=== PATIENT | male | born 1960 | race African-American/Black ===

== ENCOUNTER 2017-09-26 19:41 | Inpatient (IN) | payer MEDICARE, MEDICAID ==
[2017-09-26 23:08] VITALS: BP 126/76
[2017-09-27] MEDS ORDERED: Magnesium Hydroxide (MOM) 30 mL UDC PO PRN (00:21)
[2017-09-27] MEDS: Levothyroxine 0.1 Mg Tab PO SCH (06:39)
[2017-09-27] MEDS: INSULIN ASPART SLIDING SCALE 100 UNITS/ML UNIT SUBQ SCH ×4 (06:44→20:47)
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
--- NOTE | 2017-09-27 08:44 | Diagnostic Imaging Report ---
Portable chest x-ray HISTORY: Cough The heart size is difficult to assess with portable technique in a poor inspiration. No definite acute focal bony processes are seen. Hilar or mediastinal abnormalities. IMPRESSION: 1. No definite acute abnormalities
[2017-09-27 08:53] LABS: MEAN CORPUSCULAR HGB CONC 33.6 pg (28.0-36.0)
[2017-09-27 08:56] LABS: HEMATOCRIT 34.8 % (41.0-60); HEMOGLOBIN 11.7 gm/dL (12-16); MEAN CELL VOLUME 90.7 fl (80-99); MEAN CORPUSCULAR HEMOGLOBIN 30.5 pg (26.0-30.0); MEAN PLATELET VOLUME 7.8 fl; PLATELET COUNT 204 Th/cmm (150-400); RED BLOOD COUNT 3.83 Mil/cmm (4.30-5.70); WHITE BLOOD COUNT 9.3 Th/cmm (4.8-10.8)
[2017-09-27 08:59] LABS: MANUAL DIFF REQUIRED? YES
[2017-09-27] MEDS ORDERED: BULGARICUS PO SCH (09:00)
[2017-09-27] MEDS ORDERED: ACIDOPHILUS PO SCH (09:00)
[2017-09-27 09:15] LABS: EOSINOPHIL 1 % (0-5); LYMPHOCYTE 24 % (20-50); MONOCYTE 8 % (2-10); NEUTROPHILS 67 % (40-80); TOTAL CELLS COUNTED 100
[2017-09-27 09:20] LABS: ALB/GLOB RATIO 1.8 (1.0-1.8); ALKALINE PHOSPHATASE 54 U/L (34-104); ANION GAP 8.2 (7.0-16.0); BILIRUBIN,TOTAL 0.3 mg/dL (0.3-1.0); BUN - UREA NITROGEN 19 mg/dL (7-25); CALCIUM SERUM 8.8 mg/dL (8.6-10.3); CARBON DIOXIDE 32.9 mEq/L (21.0-31.0); CHLORIDE 99 mEq/L (98-107); CREATININE - SERUM 1.1 mg/dL (0.7-1.3); GFR AFRICAN-AMERICAN > 60.0 ml/min (>90); GFR NON AFRICAN-AMERICAN > 60.0 ml/min; GLUCOSE 121 mg/dL (70-105); MAGNESIUM 2.3 mg/dL (1.9-2.7); POTASSIUM SERUM 3.1 mEq/L (3.5-5.1); SGOT 41 U/L (13-39); SGPT/ALT 52 U/L (7-52); SODIUM SERUM 137 mEq/L (136-145); TOTAL PROTEIN,SERUM 6.2 gm/dL (6.0-8.3)
[2017-09-27] MEDS: Ferrous Sulfate 300 MG/5 ML UDC PO SCH (09:33)
[2017-09-27] MEDS: Lactobacillus Rhamnosus GG 15 Billion CFU CAP.SPRINK PO SCH (09:34)
[2017-09-27] MEDS: Atorvastatin Calcium 10 MG TAB PO SCH (09:35)
[2017-09-27] MEDS: Multivitamin w/ Minerals Tab PO SCH (09:35)
[2017-09-27 15:44] LABS: A1C % 7.1 % (4.0-6.0)
[2017-09-27] MEDS: Ipratropium Neb 0.5 mg/2.5 mL UD HHN PRN (20:15)
--- NOTE | 2017-09-27 22:07 | Psychosocial Evaluation ---
DATE OF SERVICE: JUSTIFICATION FOR HOSPITALIZATION: Coming in on a hold from [place], increased agitation, and aggressive behaviors. HISTORY OF PRESENT ILLNESS: A 56-year-old male with history of aggressive behaviors, agitation, and disorganized thoughts. Also, schizophrenia, homeless, not able to care for himself, not saying anything, selectively mute on exam, brought in on a gurney, disheveled, wearing a plastic helmet, anxious, slurred speech. On [id number], the patient is selectively mute, not saying anything to me whatsoever, staring blankly, but awake and alert. PAST PSYCHIATRIC HISTORY: Unclear. It seems he has history of schizophrenia per documentation. FAMILY HISTORY: Unknown. SOCIAL HISTORY: Homeless. Unknown drugs, alcohol, or tobacco. MEDICATIONS: Reviewed. MEDICAL HISTORY: Please see full H and P. MENTAL STATUS EXAMINATION: Stated age, unkempt. Some eye contact, not interactive at all on exam, unclear SI or HI. Seems to be responding to internal stimuli, poor insight and judgment. PROVISIONAL DIAGNOSIS: Schizophrenia. Under medical, please see full H and P. ESTIMATED LENGTH OF STAY: 5-6 days. ASSESSMENT: The patient requiring inpatient hospitalization, psychotic, gravely disabled, unable to care for himself, seemingly depressed. PLAN: We will restart medications including Geodon, low dose Seroquel. TREATMENT PLAN: Includes group as well as milieu therapy. CONDITIONS FOR DISCHARGE: Improved mood, improved affect, cessation of any SI, better control of any psychotic symptoms. [facility]# [id number]
[2017-09-28] MEDS: Levothyroxine 0.1 Mg Tab PO SCH (06:40)
[2017-09-28] MEDS: INSULIN ASPART SLIDING SCALE 100 UNITS/ML UNIT SUBQ SCH ×4 (06:41→20:49)
[2017-09-28] MEDS ORDERED: Potassium Chloride 20 mEq ER Tab PO ONE (08:02)
[2017-09-28] MEDS: Ipratropium Neb 0.5 mg/2.5 mL UD HHN PRN ×4 (08:04→20:24)
--- NOTE | 2017-09-28 08:04 | General Progress Note ---
Subjective - Review of Systems Service Date: 09/28/17 Subjective: Pt seen and eval. NAD. Has labile mood. No n,v,d or cp. No falls or sz. No cough. Objective - Results Result Diagrams: 09/27/17 08:47 09/27/17 08:47 Recent Labs: Laboratory Last Values WBC 9.3 Th/cmm (4.8-10.8) 09/27/17 08:47 RBC 3.83 Mil/cmm (4.30-5.70) L 09/27/17 08:47 Hgb 11.7 gm/dL (12-16) L 09/27/17 08:47 Hct 34.8 % (41.0-60) L 09/27/17 08:47 MCV 90.7 fl (80-99) 09/27/17 08:47 MCH 30.5 pg (26.0-30.0) H 09/27/17 08:47 MCHC Differential 33.6 pg (28.0-36.0) 09/27/17 08:47 RDW 15.0 % (11.5-20.0) 09/27/17 08:47 Plt Count 204 Th/cmm (150-400) 09/27/17 08:47 MPV 7.8 fl 09/27/17 08:47 Neutrophils (Manual) 67 % (40-80) 09/27/17 08:47 Lymphocytes 24 % (20-50) 09/27/17 08:47 Monocytes 8 % (2-10) 09/27/17 08:47 Eosinophils 1 % (0-5) 09/27/17 08:47 Sodium 137 mEq/L (136-145) 09/27/17 08:47 Potassium 3.1 mEq/L (3.5-5.1) L 09/27/17 08:47 Chloride 99 mEq/L (98-107) 09/27/17 08:47 Carbon Dioxide 32.9 mEq/L (21.0-31.0) H 09/27/17 08:47 Anion Gap 8.2 (7.0-16.0) 09/27/17 08:47 BUN 19 mg/dL (7-25) 09/27/17 08:47 Creatinine 1.1 mg/dL (0.7-1.3) 09/27/17 08:47 Est GFR ( Amer) > 60.0 ml/min (>90) 09/27/17 08:47 Est GFR (Non-Af Amer) > 60.0 ml/min 09/27/17 08:47 BUN/Creatinine Ratio 17.3 09/27/17 08:47 Glucose 121 mg/dL (70-105) H 09/27/17 08:47 POC Glucose 101 MG/DL (70 - 105) 09/28/17 06:39 Hemoglobin A1c % 7.1 % (4.0-6.0) H 09/27/17 08:47 Calcium 8.8 mg/dL (8.6-10.3) 09/27/17 08:47 Magnesium 2.3 mg/dL (1.9-2.7) 09/27/17 08:47 Total Bilirubin 0.3 mg/dL (0.3-1.0) 09/27/17 08:47 AST 41 U/L (13-39) H 09/27/17 08:47 ALT 52 U/L (7-52) 09/27/17 08:47 Alkaline Phosphatase 54 U/L (34-104) 09/27/17 08:47 Total Protein 6.2 gm/dL (6.0-8.3) 09/27/17 08:47 Albumin 4.0 gm/dL (4.2-5.5) L 09/27/17 08:47 Globulin 2.2 gm/dL 09/27/17 08:47 Albumin/Globulin Ratio 1.8 (1.0-1.8) 09/27/17 08:47 - Physical Exam Vitals and I&O: Vital Signs Temp 97.9 F 09/28/17 06:40 Pulse 77 09/28/17 06:40 Resp 20 09/28/17 06:40 BP 142/54 09/28/17 06:40 Pulse Ox 99 09/28/17 06:40 Intake & Output 09/27/17 09/28/17 09/28/17 18:59 06:59 18:59 Intake Total 1600 120 Balance 1600 120 Intake: Oral 1600 120 Other: # Voids 3 3 # Bowel Movements 1 Active Medications: Current Medications Acetaminophen (Tylenol) 650 mg PO Q6H PRN PRN Reason: Headache Stop: 11/26/17 00:35 Acetylcysteine (Mucomyst 20%) 2 ml HHN [id number] [facility] Stop: 11/26/17 07:59 Last Admin: 09/27/17 20:16 Dose: 2 ml Atorvastatin Calcium (Lipitor) 10 mg PO DAILY ZAFAR PRN Reason: Protocol Stop: 11/26/17 08:59 Last Admin: 09/27/17 09:35 Dose: 10 mg Docusate Sodium (Colace) 100 mg PO BID ZAFAR Stop: 11/26/17 08:59 Last Admin: 09/27/17 16:08 Dose: 100 mg Ferrous Sulfate (Iron) 300 mg PO DAILY ZAFAR Stop: 11/26/17 08:59 Last Admin: 09/27/17 09:33 Dose: 300 mg Insulin Aspart (Novolog Insulin Sliding Scale) 0 units SUBQ ACHS ZAFAR PRN Reason: Protocol Stop: 11/26/17 07:29 Last Admin: 09/28/17 06:41 Dose: Not Given Ipratropium [place] (Atrovent Neb 0.5mg/2.5ml) 0.6 mg HHN Q4H PRN PRN Reason: sob Stop: 11/26/17 05:06 Last Admin: 09/27/17 20:15 Dose: 0.6 mg Lactobacillus Rhamnosus (Culturelle 15b) 1 each PO DAILY [facility] Stop: 11/26/17 08:59 Last Admin: 09/27/17 09:34 Dose: 1 each Levothyroxine Sodium (Synthroid) 0.2 mg PO QDAC [facility] Stop: 11/26/17 07:29 Last Admin: 09/28/17 06:40 Dose: 0.2 mg Lisinopril (Zestril) 20 mg PO DAILY [facility] Stop: 11/26/17 08:59 Last Admin: 09/27/17 09:34 Dose: 20 mg Lorazepam (Ativan) 1 mg PO Q4H PRN; Protocol PRN Reason: Anxiety and agitation Stop: 11/26/17 05:06 Last Admin: 09/27/17 23:22 Dose: 1 mg Magnesium Hydroxide (Milk Of Magnesia) 30 ml PO HS PRN PRN Reason: Constipation Stop: 11/26/17 00:20 Meclizine HCl (Antivert) 12.5 mg PO Q12H PRN PRN Reason: Dizziness Stop: 11/26/17 05:06 Metoprolol Tartrate (Lopressor) 50 mg PO BID [facility] Stop: 11/26/17 08:59 Last Admin: 09/27/17 16:09 Dose: Not Given Nitroglycerin (Nitrostat) 0.4 mg SL Q4H PRN PRN Reason: Chest Pain Stop: 11/26/17 05:06 Ondansetron HCl (Zofran Odt) 4 mg PO Q6H PRN PRN Reason: Nausea / Vomiting Stop: 11/26/17 00:20 Quetiapine Fumarate (Seroquel) 100 mg PO TID [facility] PRN Reason: Protocol Stop: 11/27/17 08:59 Simethicone (Mylicon) 80 mg PO TID PRN PRN Reason: Indigestion Stop: 11/26/17 05:06 Ziprasidone (Geodon) 20 mg PO BID [facility] PRN Reason: Protocol Stop: 11/26/17 08:59 Last Admin: 09/27/17 16:10 Dose: 20 mg Zolpidem Tartrate (Ambien) 5 mg PO PRN PRN Reason: Insomnia Stop: 11/26/17 00:20 Last Admin: 09/27/17 20:46 Dose: 5 mg General: No acute distress HEENT: Atraumatic, PERRLA Neck: Supple, JVD, Thyromegaly Cardiovascular: Regular rate, no Systolic murmurs Lungs: Clear to auscultation, Normal air movement Abdomen: Bowel sounds, Soft Assessment/Plan - Assessment Assessment: DM-OOC Hypokalemia - Plan Plan: Add metformin. Continue fsbs and riss. Give Kcl 40 meq po times one. FU on chem 7 and Mag level.
[2017-09-28] MEDS: Lactobacillus Rhamnosus GG 15 Billion CFU CAP.SPRINK PO SCH (09:15)
[2017-09-28] MEDS: Ferrous Sulfate 300 MG/5 ML UDC PO SCH (09:15)
[2017-09-28] MEDS: Multivitamin w/ Minerals Tab PO SCH (09:16)
[2017-09-28] MEDS: Atorvastatin Calcium 10 MG TAB PO SCH (09:17)
--- NOTE | 2017-09-28 22:40 | Progress Notes ---
DATE: 09/28/2017 SUBJECTIVE: The patient remains confused, history of dementia, states "all I know I'm here". He does not know the year, the month, the day of the week. He has no idea why he is here. The patient with some rambling episodes, disorientation, so requiring prompting. Sleeping with kettle firer awakenings. PLAN: We will continue to monitor. Given his ongoing symptoms, he is not safe for discharge. He is currently tolerating current medication regimen which include Seroquel 400 mg twice daily. JOB# [id number]
[2017-09-29] MEDS ORDERED: Ipratropium Neb 0.5 mg/2.5 mL UD HHN ONE (06:34)
[2017-09-29] MEDS: Levothyroxine 0.1 Mg Tab PO SCH (06:45)
[2017-09-29] MEDS: INSULIN ASPART SLIDING SCALE 100 UNITS/ML UNIT SUBQ SCH ×4 (06:46→21:01)
[2017-09-29 08:42] LABS: ANION GAP 5.4 (7.0-16.0); BUN - UREA NITROGEN 16 mg/dL (7-25); CALCIUM SERUM 8.9 mg/dL (8.6-10.3); CARBON DIOXIDE 36.4 mEq/L (21.0-31.0); CHLORIDE 102 mEq/L (98-107); CREATININE - SERUM 1.1 mg/dL (0.7-1.3); GFR AFRICAN-AMERICAN > 60.0 ml/min (>90); GFR NON AFRICAN-AMERICAN > 60.0 ml/min; GLUCOSE 112 mg/dL (70-105); POTASSIUM SERUM 3.8 mEq/L (3.5-5.1); SODIUM SERUM 140 mEq/L (136-145)
[2017-09-29] MEDS: Lactobacillus Rhamnosus GG 15 Billion CFU CAP.SPRINK PO SCH (08:57)
[2017-09-29] MEDS: Atorvastatin Calcium 10 MG TAB PO SCH (08:57)
[2017-09-29] MEDS: Multivitamin w/ Minerals Tab PO SCH (08:58)
[2017-09-29] MEDS: Ferrous Sulfate 300 MG/5 ML UDC PO SCH (08:59)
--- NOTE | 2017-09-29 09:34 | Progress Notes ---
DATE: 09/29/2017 SUBJECTIVE: The patient remains confused. States he does not know why he is here, "only knows I am here," not sure about the year, the month, rambling nonsensically, not a very good historian, still requiring prompting, unable to give me any indication that he will be able to attend to his basic needs if discharged, eating on his own volition, sleeping with spring bender awakenings. He is pretty disheveled. ASSESSMENT: The patient remains symptomatic, not safe for discharge, still disoriented, impulsive, and unpredictable. PLAN: We will continue to monitor. Continue medications at current dose. No side effects noted. JOB# [id number]
[2017-09-29] MEDS ORDERED: Haloperidol Lactate 5 mg/mL 1mL Vial ONE (10:06)
[2017-09-29] MEDS ORDERED: Haloperidol Lactate 5 mg/mL 1mL Vial IM ONE (10:15)
[2017-09-29] MEDS: Ipratropium Neb 0.5 mg/2.5 mL UD HHN PRN ×3 (11:54→19:36)
[2017-09-30] MEDS: Levothyroxine 0.1 Mg Tab PO SCH (06:38)
[2017-09-30] MEDS: INSULIN ASPART SLIDING SCALE 100 UNITS/ML UNIT SUBQ SCH ×4 (06:39→20:30)
[2017-09-30] MEDS: Ipratropium Neb 0.5 mg/2.5 mL UD HHN PRN ×3 (07:26→15:05)
[2017-09-30] MEDS: Ferrous Sulfate 300 MG/5 ML UDC PO SCH (09:16)
[2017-09-30] MEDS: Lactobacillus Rhamnosus GG 15 Billion CFU CAP.SPRINK PO SCH (09:17)
[2017-09-30] MEDS: Atorvastatin Calcium 10 MG TAB PO SCH (09:18)
[2017-09-30] MEDS: Multivitamin w/ Minerals Tab PO SCH (09:18)
--- NOTE | 2017-09-30 15:44 | Progress Notes ---
DATE: 09/30/2017 SUBJECTIVE: The patient remains confused, disoriented and nonsensical. I cannot understand what he is saying. He does not know why he is here. He is not quite sure about the year, the month. He does not have any idea where he is going to go back. He is giving me names or places that I am not sure exist or not. He is taking his medications, remains impulsive, unpredictable, sleeping fairly well, eating with prompting, he remains disheveled. ASSESSMENT: The patient remains symptomatic, still disoriented, poor impulse control, not a good historian. PLAN: We will continue to monitor given ongoing symptoms. There are overt safety concerns. We will monitor and follow up. [facility]# [id number]
[2017-10-01] MEDS: Levothyroxine 0.1 Mg Tab PO SCH (06:31)
[2017-10-01] MEDS: INSULIN ASPART SLIDING SCALE 100 UNITS/ML UNIT SUBQ SCH ×4 (06:47→20:34)
[2017-10-01] MEDS: Atorvastatin Calcium 10 MG TAB PO SCH (09:06)
[2017-10-01] MEDS: Ferrous Sulfate 300 MG/5 ML UDC PO SCH (09:06)
[2017-10-01] MEDS: Multivitamin w/ Minerals Tab PO SCH (09:06)
[2017-10-01] MEDS: Lactobacillus Rhamnosus GG 15 Billion CFU CAP.SPRINK PO SCH (09:08)
[2017-10-01] MEDS: Ipratropium Neb 0.5 mg/2.5 mL UD HHN PRN ×2 (11:42→16:16)
--- NOTE | 2017-10-01 21:10 | Progress Notes ---
DATE: 10/01/2017 SUBJECTIVE: The patient was seen today, 10/01/2017. The patient remains somewhat disoriented. He is calmer today, getting breathing treatments, more amenable to treatment. He is pretty disoriented, not really quite sure where he is or why he is here, the year, the month. He remains pretty impulsive and unpredictable. There are overt concerns about his ability to attend and care for his basic needs. He was initially admitted to the hospital due to being homeless and agitated and disorganized and bizarre appearing and unable to verbalize a plan for self-care. ASSESSMENT: The patient remains symptomatic, gravely disabled. There are overt and continued safety concerns. Medications will be adjusted appropriately. We will monitor and follow up. [facility]# [id number]
[2017-10-02] MEDS: Levothyroxine 0.1 Mg Tab PO SCH (06:38)
[2017-10-02] MEDS: INSULIN ASPART SLIDING SCALE 100 UNITS/ML UNIT SUBQ SCH ×4 (06:38→20:57)
[2017-10-02] MEDS: Ipratropium Neb 0.5 mg/2.5 mL UD HHN PRN ×2 (08:21→20:41)
[2017-10-02] MEDS: Ferrous Sulfate 300 MG/5 ML UDC PO SCH (09:16)
[2017-10-02] MEDS: Atorvastatin Calcium 10 MG TAB PO SCH (09:16)
[2017-10-02] MEDS: Lactobacillus Rhamnosus GG 15 Billion CFU CAP.SPRINK PO SCH (09:16)
[2017-10-02] MEDS: Multivitamin w/ Minerals Tab PO SCH (09:17)
--- NOTE | 2017-10-02 22:12 | Progress Notes ---
DATE: 10/02/2017 SUBJECTIVE: The patient coming in from [place] agitated, aggressive, disorganized, disheveled, bizarre. The patient remains odd, disoriented, does not know where he is or what is going on, mostly in his bed, fairly reclusive, fair medication compliance. He still seems to be somewhat psychotic, responding to internal stimuli. Currently on Seroquel 100 mg 3 times a day, seems calmer, more cooperative, more redirectable, but ongoing psychotic symptoms and disorganized thoughts. MEDICATIONS: Reviewed. ASSESSMENT: The patient remains symptomatic, disheveled, reclusive, concerns for his ability to care for his basic needs given his ongoing psychotic symptoms. PLAN: We will continue to monitor, increase Seroquel today. JOB# [id number]
[2017-10-03] MEDS: Levothyroxine 0.1 Mg Tab PO SCH (06:37)
[2017-10-03] MEDS: INSULIN ASPART SLIDING SCALE 100 UNITS/ML UNIT SUBQ SCH ×4 (06:44→21:00)
[2017-10-03] MEDS: Multivitamin w/ Minerals Tab PO SCH (09:02)
[2017-10-03] MEDS: Atorvastatin Calcium 10 MG TAB PO SCH (09:02)
[2017-10-03] MEDS: Lactobacillus Rhamnosus GG 15 Billion CFU CAP.SPRINK PO SCH (09:02)
[2017-10-03] MEDS: Ferrous Sulfate 300 MG/5 ML UDC PO SCH (09:02)
[2017-10-03] MEDS: Ipratropium Neb 0.5 mg/2.5 mL UD HHN PRN (20:20)
[2017-10-04] MEDS: Levothyroxine 0.1 Mg Tab PO SCH (06:30)
[2017-10-04] MEDS: INSULIN ASPART SLIDING SCALE 100 UNITS/ML UNIT SUBQ SCH ×4 (06:31→20:19)
[2017-10-04] MEDS: Ipratropium Neb 0.5 mg/2.5 mL UD HHN PRN ×2 (06:45→11:37)
[2017-10-04] MEDS: Ferrous Sulfate 300 MG/5 ML UDC PO SCH (08:15)
[2017-10-04] MEDS: Atorvastatin Calcium 10 MG TAB PO SCH (08:16)
[2017-10-04] MEDS: Lactobacillus Rhamnosus GG 15 Billion CFU CAP.SPRINK PO SCH (08:17)
[2017-10-04] MEDS: Multivitamin w/ Minerals Tab PO SCH (08:18)
--- NOTE | 2017-10-04 13:52 | Progress Notes ---
DATE: 10/03/2017 HISTORY OF PRESENT ILLNESS: The patient is coming in from [place], remains agitated, somewhat aggressive, odd, fairly reclusive, staff noting he has been masturbating in his room, not following unit rules and directions very well. He is somewhat more calm, more cooperative. He states he has a place to go, but nothing has been confirmed and there are overt concerns about his ability to take care of his basic needs. MEDICATIONS: Reviewed including dosages and frequencies. ASSESSMENT: The patient remains symptomatic, not safe for discharge, still remains impulsive, still seems to be mumbling to self, responding to internal stimuli. PLAN: We will continue to monitor, we will try to confirm placements, increase Seroquel today. JOB# [id number]
--- NOTE | 2017-10-05 01:39 | Progress Notes ---
DATE: 10/04/2017 SUBJECTIVE: The patient was seen and evaluated. psychiatric followup, now covering for Dr. Lubin IDENTIFYING DATA: A 56-year-old male with history of aggressive behavior and disorganized thought process with diagnosis of schizophrenia, transient, was brought in here after the patient presented very psychotic, disorganized and staring blankly. Today on [id number] evaluation, he observed to be responding, internally preoccupied, minimally interactive and is very disengaged in the interview, mostly avoiding all of the questions although finding extremely preoccupied. MENTAL STATUS EXAMINATION: Disorganized, internally preoccupied. Flat affect, poor insight, judgment and impulse control. ASSESSMENT AND PLAN: The patient is a patient with severe schizophrenia who is using adjustments of any increase of Seroquel, has been alleviating some of the patient's psychotic symptoms. We will continue with primary psychiatrist's treatment plan and goals, which includes Seroquel at 100 mg p.o. b.i.d. and 250 at nighttime and Geodon at 20 mg p.o. b.i.d. We will continue with the current medication regimen and slowly consider tapering him off the Geodon to reduce the risk of any cardiac side effects of medications as he is observed to be tolerating slightly better dosage of the increase of quetiapine. JOB# [id number]
[2017-10-05] MEDS: Levothyroxine 0.1 Mg Tab PO SCH (06:48)
[2017-10-05] MEDS: INSULIN ASPART SLIDING SCALE 100 UNITS/ML UNIT SUBQ SCH ×4 (06:49→20:15)
[2017-10-05] MEDS: Ferrous Sulfate 300 MG/5 ML UDC PO SCH (08:21)
[2017-10-05] MEDS: Lactobacillus Rhamnosus GG 15 Billion CFU CAP.SPRINK PO SCH (08:21)
[2017-10-05] MEDS: Atorvastatin Calcium 10 MG TAB PO SCH (08:23)
[2017-10-05] MEDS: Multivitamin w/ Minerals Tab PO SCH (08:23)
--- NOTE | 2017-10-05 23:15 | Progress Notes ---
DATE: 10/05/2017 The patient was seen and evaluated. The patient's chart reviewed. This is Dr. Bennett covering for Dr. Lubin. SUBJECTIVE: Today on [id number] evaluation, the patient is disengaged, observed to be responding heavily to the voices. Today, he denies any side effects of medication. MENTAL STATUS EXAMINATION: Disorganized, internally preoccupied. Poor insight, judgment, and impulse control with flat effect. ASSESSMENT AND PLAN: The patient is a 56-year-old male with paranoid schizophrenia. We will continue with supervision and monitoring. Currently, the patient is on Seroquel 450 mg a day. Due to the patient's active psychotic symptoms, we will continue titrating the Seroquel to target the patient's psychotic symptoms and discontinue the Geodon interaction since Geodon at this point is extremely ineffective. JOB# [id number]
--- NOTE | 2017-10-06 00:15 | Progress Notes ---
DATE: SUBJECTIVE: The patient was seen and evaluated and appears to not be in any acute distress. The patient complains of generalized muscle weakness, which has increased over the last 2 days. Denies fevers, chills, chest pain, shortness of breath, abdominal pain, nausea, vomiting, or recent falls. PHYSICAL EXAMINATION: VITAL SIGNS: Temperature 98.6 degrees, blood pressure 112/60, heart rate 86, and respirations 16. GENERAL: NAD. HEENT: PERRLA. EOMI. NECK: Supple, Trachea midline. CARDIOVASCULAR: Regular rate and rhythm. RESPIRATORY: Decreased breath sounds bilaterally. No wheezes, rales, or rhonchi. ABDOMEN: Soft, nontender, nondistended. Bowel sounds x4. PSYCHIATRIC: Poor impulse control. EXTREMITIES: No edema. MUSCULOSKELETAL: Unsteady gait. Muscle strength testing in bilateral upper and lower extremity is 4/5. LABORATORY DATA: No new labs. ASSESSMENT: Generalized weakness, diabetes mellitus, dyslipidemia, hypothyroidism, hypertension, psychosis, seizure disorder, left calcaneus avulsion fracture, metabolic encephalopathy, status post acute respiratory failure. Continue levothyroxine, insulin sliding scale, lisinopril, and atorvastatin. Psychiatry is following. PLAN: The patient will be reevaluated for the need for physical therapy. The patient appears to ambulate okay and at this time does not appear to need physical therapy. After we reassess him, if there is a continued need, then physical therapy will be asked to join at that time. JOB# [id number]
[2017-10-06] MEDS: INSULIN ASPART SLIDING SCALE 100 UNITS/ML UNIT SUBQ SCH ×4 (06:35→20:39)
[2017-10-06] MEDS: Levothyroxine 0.1 Mg Tab PO SCH (06:36)
[2017-10-06] MEDS: Multivitamin w/ Minerals Tab PO SCH (08:25)
[2017-10-06] MEDS: Atorvastatin Calcium 10 MG TAB PO SCH (08:27)
[2017-10-06] MEDS: Ferrous Sulfate 300 MG/5 ML UDC PO SCH (08:27)
[2017-10-06] MEDS: Lactobacillus Rhamnosus GG 15 Billion CFU CAP.SPRINK PO SCH (08:27)
[2017-10-06] MEDS ORDERED: Haloperidol Lactate 5 mg/mL 1mL Vial IM ONE (15:05)
[2017-10-06] MEDS ORDERED: Haloperidol Lactate 5 mg/mL 1mL Vial ONE (15:11)
--- NOTE | 2017-10-07 00:47 | Progress Notes ---
DATE: 10/06/2017 SUBJECTIVE: The patient seen, chart reviewed, discussed with staff. The patient remains internally preoccupied, disheveled and unkempt. He is eating on his own volition, seems still with voices, attesting to voices, still somewhat paranoid, hypervigilant, but he does seem to be calmer, more cooperative. He is not the best historian. It is unclear where he is going to go when he leaves the hospital. The patient is seen by Dr. Bennett over the weekend who notes ongoing symptoms, ongoing paranoia and hallucinations. PLAN: We will continue to monitor. I did review the patient's medications. No EPS noted. He is currently on 100 mg of Seroquel twice daily, recent dose increase of Seroquel at night to 300 mg. We will monitor and follow up. JOB# [id number]
[2017-10-07] MEDS: INSULIN ASPART SLIDING SCALE 100 UNITS/ML UNIT SUBQ SCH ×3 (06:37→20:06)
[2017-10-07] MEDS: Levothyroxine 0.1 Mg Tab PO SCH (06:39)
[2017-10-07] MEDS: Atorvastatin Calcium 10 MG TAB PO SCH (09:12)
[2017-10-07] MEDS: Ferrous Sulfate 300 MG/5 ML UDC PO SCH (09:12)
[2017-10-07] MEDS: Multivitamin w/ Minerals Tab PO SCH (09:12)
[2017-10-07] MEDS: Lactobacillus Rhamnosus GG 15 Billion CFU CAP.SPRINK PO SCH (09:15)
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
[2017-10-08] MEDS: INSULIN ASPART SLIDING SCALE 100 UNITS/ML UNIT SUBQ SCH ×3 (06:40→21:23)
[2017-10-08] MEDS: Levothyroxine 0.1 Mg Tab PO SCH (06:41)
[2017-10-08] MEDS: Multivitamin w/ Minerals Tab PO SCH (09:27)
[2017-10-08] MEDS: Atorvastatin Calcium 10 MG TAB PO SCH (09:28)
[2017-10-08] MEDS: Lactobacillus Rhamnosus GG 15 Billion CFU CAP.SPRINK PO SCH (09:29)
[2017-10-08] MEDS: Ferrous Sulfate 300 MG/5 ML UDC PO SCH (09:29)
[2017-10-09] MEDS: INSULIN ASPART SLIDING SCALE 100 UNITS/ML UNIT SUBQ SCH ×4 (06:37→21:00)
[2017-10-09] MEDS: Levothyroxine 0.1 Mg Tab PO SCH (06:39)
[2017-10-09] MEDS: Atorvastatin Calcium 10 MG TAB PO SCH (08:43)
[2017-10-09] MEDS: Lactobacillus Rhamnosus GG 15 Billion CFU CAP.SPRINK PO SCH (08:44)
[2017-10-09] MEDS: Multivitamin w/ Minerals Tab PO SCH (08:45)
[2017-10-09] MEDS: Ferrous Sulfate 300 MG/5 ML UDC PO SCH (08:46)
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
--- NOTE | 2017-10-10 00:52 | Progress Notes ---
DATE: 10/09/2017 SUBJECTIVE: Chart reviewed and the patient interviewed. Also discussed the patient's condition with the staff and reviewed records and labs. The patient's affect is brighter and the patient seems to be slightly less irritable and less agitation. He still wants to be left alone and still slightly suspicious and paranoia, but seems to be less than before. He also has been more compliant with taking his medications and he denies any side effects of medications. ASSESSMENT: The patient showed some improvement. TREATMENT PLAN: We will continue to monitor his behavior and his condition closely. Also, we will continue to work on discharge plans and it seemed that the manager social responsibility is not able to find any placement for the patient yet. JOB# [id number]
[2017-10-10] MEDS: INSULIN ASPART SLIDING SCALE 100 UNITS/ML UNIT SUBQ SCH ×4 (06:43→20:21)
[2017-10-10] MEDS: Ferrous Sulfate 300 MG/5 ML UDC PO SCH (08:37)
[2017-10-10] MEDS: Multivitamin w/ Minerals Tab PO SCH (08:38)
[2017-10-10] MEDS: Atorvastatin Calcium 10 MG TAB PO SCH (08:38)
[2017-10-10] MEDS: Lactobacillus Rhamnosus GG 15 Billion CFU CAP.SPRINK PO SCH (08:38)
[2017-10-10] MEDS: Levothyroxine 0.1 Mg Tab PO SCH (11:48)
[2017-10-11] MEDS: INSULIN ASPART SLIDING SCALE 100 UNITS/ML UNIT SUBQ SCH ×4 (07:04→21:00)
[2017-10-11] MEDS: Levothyroxine 0.1 Mg Tab PO SCH (07:04)
[2017-10-11] MEDS: Lactobacillus Rhamnosus GG 15 Billion CFU CAP.SPRINK PO SCH (08:55)
[2017-10-11] MEDS: Ferrous Sulfate 300 MG/5 ML UDC PO SCH (08:55)
[2017-10-11] MEDS: Multivitamin w/ Minerals Tab PO SCH (08:56)
[2017-10-11] MEDS: Atorvastatin Calcium 10 MG TAB PO SCH (08:57)
--- NOTE | 2017-10-11 17:11 | Progress Notes ---
DATE: SUBJECTIVE: The patient seen, chart reviewed. Discussed with staff. The patient continues to be somewhat irritable, requiring redirections. Generally self isolative, hypervigilant, and paranoid. He has, however, been compliant with his medications, denying any undue side effects. We will continue the patient on current medications. Monitor the patient on a daily basis and work with assistant case manager regarding the patient's placement on discharge. [facility]# [id number]
[2017-10-12] MEDS: INSULIN ASPART SLIDING SCALE 100 UNITS/ML UNIT SUBQ SCH ×4 (06:29→20:05)
[2017-10-12] MEDS: Levothyroxine 0.1 Mg Tab PO SCH (07:30)
[2017-10-12] MEDS: Ferrous Sulfate 300 MG/5 ML UDC PO SCH (09:37)
[2017-10-12] MEDS: Multivitamin w/ Minerals Tab PO SCH (09:38)
[2017-10-12] MEDS: Lactobacillus Rhamnosus GG 15 Billion CFU CAP.SPRINK PO SCH (09:38)
[2017-10-12] MEDS: Atorvastatin Calcium 10 MG TAB PO SCH (09:39)
[2017-10-13] MEDS: INSULIN ASPART SLIDING SCALE 100 UNITS/ML UNIT SUBQ SCH ×4 (06:33→20:02)
[2017-10-13] MEDS: Levothyroxine 0.1 Mg Tab PO SCH (06:33)
[2017-10-13] MEDS: Lactobacillus Rhamnosus GG 15 Billion CFU CAP.SPRINK PO SCH (08:25)
[2017-10-13] MEDS: Multivitamin w/ Minerals Tab PO SCH (08:26)
[2017-10-13] MEDS: Atorvastatin Calcium 10 MG TAB PO SCH (08:26)
[2017-10-13] MEDS: Ferrous Sulfate 300 MG/5 ML UDC PO SCH (08:26)
--- NOTE | 2017-10-13 16:07 | Progress Notes ---
DATE: The patient was seen, chart reviewed and discussed with staff. The patient continues to be irritable, paranoid, hypervigilant and self isolative, requires numerous redirections. However, he has been compliant with medications, following unit rules with minimal redirections. PLAN: The patient continues to be unpredictable and irritable, so that he will require inpatient care center treatment. We will monitor on a daily basis for response to medications and titrate medications as needed. JOB# [id number]
--- NOTE | 2017-10-13 19:49 | Progress Notes ---
DATE: 10/13/2017 Case was discussed with staff of the patient and reviewed records. This is a 56-year-old male who came from [place] because of increasing agitation and aggressive behavior, with a history of aggressive behavior, agitation, disorganized thoughts, and schizophrenia. He is homeless, not able to care for himself, not saying anything, selectively mute on exam, brought on a gurney, disheveled, wearing plastic helmet, not saying anything to me whatsoever, staring blankly but awake and alert. He continues to be psychotic, unpredictable and impulsive. The staff is working on placement for this patient. He continues to have poor insight, unpredictable, impulsive, psychotic, needing placement. Seroquel dose was increased to 400 mg at bedtime and the day medication was increased to 150 [address] day [address] Lubin and no side effects, no sedation, no nausea, no extrapyramidal symptoms. We will continue to work the patient in group therapy, milieu therapy, adjust the medication as needed. JOB# [id number]
[2017-10-14] MEDS: INSULIN ASPART SLIDING SCALE 100 UNITS/ML UNIT SUBQ SCH ×4 (06:29→20:20)
[2017-10-14] MEDS: Levothyroxine 0.1 Mg Tab PO SCH (06:30)
[2017-10-14] MEDS: Ferrous Sulfate 300 MG/5 ML UDC PO SCH (09:00)
[2017-10-14] MEDS: Multivitamin w/ Minerals Tab PO SCH (09:01)
[2017-10-14] MEDS: Atorvastatin Calcium 10 MG TAB PO SCH (09:02)
[2017-10-14] MEDS: Lactobacillus Rhamnosus GG 15 Billion CFU CAP.SPRINK PO SCH (09:03)
--- NOTE | 2017-10-14 21:36 | Progress Notes ---
DATE: 10/14/2017 Case was discussed with staff of the patient, reviewed records. The patient continues to be unpredictable. He is demented, confused, at times aggressive, but in general, he is better, waiting on placement for this patient. He is compliant with the medication with no side effects, no sedation, no nausea, no extrapyramidal symptoms. He continues to need redirection. Very poor insight, need to be in a structured environment, cannot take care of himself and we will continue to work with the patient in group therapy, milieu therapy, and adjust medications as needed. JOB# [id number]
[2017-10-15] MEDS: INSULIN ASPART SLIDING SCALE 100 UNITS/ML UNIT SUBQ SCH ×2 (06:33→11:21)
[2017-10-15] MEDS: Levothyroxine 0.1 Mg Tab PO SCH (06:34)
[2017-10-15] MEDS: Lactobacillus Rhamnosus GG 15 Billion CFU CAP.SPRINK PO SCH (09:07)
[2017-10-15] MEDS: Atorvastatin Calcium 10 MG TAB PO SCH (09:07)
[2017-10-15] MEDS: Ferrous Sulfate 300 MG/5 ML UDC PO SCH (09:07)
[2017-10-15] MEDS: Multivitamin w/ Minerals Tab PO SCH (09:08)
--- NOTE | 2017-10-16 01:16 | Discharge Summary ---
DATE OF DISCHARGE: 10/15/2017 PRIMARY DIAGNOSES: Schizoaffective disorder, bipolar type, with psychotic features, severe. REASON FOR HOSPITALIZATION: The patient was admitted to the hospital from [facility] because of increased irritability and increased agitation. The patient also was aggressive and paranoid. HOSPITAL COURSE: The patient continued to be agitated and in irritable mood. Also, was suspicious and paranoid. The patient also was having difficulty following directions and was hyperverbal. At the same time, the patient was compliant with taking Seroquel, which did help with his agitation and irritability. [facility] did not want to take the patient back. 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 DISCHARGE ACTIVITY: No restrictions. DISCHARGE DIET: Regular. EXPECTED OUTCOME AFTER DISCHARGE: Fair if the patient continued to take his medications and follow up with his discharge plans. JOB# [id number]
== END 2017-10-15 14:45 | DRG 885 ==
LOC: GERO 19:41
PROVIDERS: ADMIT Psychiatry & Neurology Psychiatry; ATTEND Psychiatry & Neurology Psychiatry
DX: F25.0 Schizoaffective disorder, bipolar type (principal); G93.41 Metabolic encephalopathy; E11.9 Type 2 diabetes mellitus without complications; F29 Unspecified psychosis not due to a substance or known physiological condition; G40.909 Epilepsy, unspecified, not intractable, without status epilepticus; E03.9 Hypothyroidism, unspecified; Z59.0 Homelessness; E78.5 Hyperlipidemia, unspecified; I10 Essential (primary) hypertension; F41.9 Anxiety disorder, unspecified; R47.81 Slurred speech; S92.002A Unspecified fracture of left calcaneus, initial encounter for closed fracture; E87.6 Hypokalemia; W18.30XA Fall on same level, unspecified, initial encounter; Y93.89 Activity, other specified; Y92.89 Other specified places as the place of occurrence of the external cause; Y99.8 Other external cause status
CPT/HCPCS: 36415-UA; 71010-TC; 80048-TC; 80053-TC; 82948-90; 83036-90; 83735-TC; 85007-TC; 85027-TC; 90779; 93005; 94640; 94760; G0410; J1200; J1630; J1815; J2060; Z7610